=== PATIENT | female | born 1975 | race Caucasian/White ===

== ENCOUNTER 2022-02-15 08:00 | Outpatient (CLI) | payer OTHER ==
--- NOTE | 2022-02-15 08:36 | XRAY Report ---
PROCEDURE: Chest 2 View X-Ray INDICATIONS: COUGH TECHNIQUE: 2 view(s) of the chest. COMPARISON: None. FINDINGS: Surgical changes and devices: None. Lungs and pleura: No pleural effusions or pneumothorax. Subtle patchy airspace opacity in the left l ower lobe consistent with early pneumonia. Mediastinum: Mediastinal contours are normal. Heart size is normal. Bones and chest wall: No suspicious bony abnormalities. Soft tissues appear unremarkable. IMPRESSION: Subtle patchy left lower lobe pneumonia. Reviewed by: Melecio Jones on 02/15/2022 8:35 AM PDT Approved by: Melecio Jones on 02/15/2022 8:35 AM PDT Station ID: [id number]
== END 2022-02-15 23:58 | disposition home or self-care (01) ==
LOC: DI.N 08:00
PROVIDERS: ATTEND Nurse Practitioner Family
DX: J18.9 Pneumonia, unspecified organism (principal)